=== PATIENT | male | born 1985 | race Caucasian/White ===

== ENCOUNTER 2018-05-30 10:23 | Emergency (ER) | payer SELFPAY ==
[2018-05-30 10:31] VITALS: BP 122/66; PULSE 87; RESP 18; TEMP 98.4; O2SAT 100
[2018-05-30] MEDS ORDERED: Tetanus/Diphtheria Toxoids 0.5 ml Syringe IM ONE ×2 (10:53→11:02)
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
== END 2018-05-30 11:03 | disposition home or self-care (01) ==
LOC: C.ER 10:23
DX: S40.811A Abrasion of right upper arm, initial encounter (principal); S50.811A Abrasion of right forearm, initial encounter; L03.113 Cellulitis of right upper limb; Y04.1XXA Assault by human bite, initial encounter